=== PATIENT | male | born 1960 | race African-American/Black ===

== ENCOUNTER 2016-07-06 11:17 | Inpatient (IN) | payer OTHER ==
[2016-07-06 12:48] VITALS: BMI 19.8
--- NOTE | 2016-07-06 16:42 | HP ---
CIWA Score - CIWA Score Nausea/Vomitin Muscle Tremors: 3 Anxiety: 3 Agitation: 2 Paroxysmal Sweats: 3 Orientation: 0-Oriented Tacttile Disturbances: 2-Mild Itch/Numbness/Burn Auditory Disturbances: 0-None Visual Disturbances: 0-None Headache: 0-None Present CIWA-Ar Total Score: 16 Admission ROS BHS - HPI Chief Complaint: i need help to stop drinking alcohol. Allergies/Adverse Reactions: Allergies Allergy/AdvReac Type Severity Reaction Status Date / Time No Known Allergies Allergy Verified 07/06/16 15:34 History of Present Illness: 55 y/o m pt on mmtp methadone 40mg with h/o chronic alcoholism seeking detox. Exam Limitations: No Limitations - Ebola screening Have you traveled outside of the country in the last 21 days: No Have you had contact with anyone from an Ebola affected area: No Have you been sick,other than usual withdrawal symptoms: No - Review of Systems Constitutional: Malaise, Night Sweats, Changes in sleep EENT: reports: Blurred Vision (ewars glasses -doesn't have them), Dental Problems (poor repair) Respiratory: reports: Shortness of Breath Cardiac: reports: No Symptoms Reported GI: reports: Constipated, Nausea, Vomiting, Indigestion, Abdominal cramping : reports: No Symptoms Reported Musculoskeletal: reports: Joint Pain (rt ankle , hands , neck) Integumentary: reports: Sweating Neuro: reports: Tremors, Weakness, Other (blackouts -last 1 week ago) Endocrine: reports: No Symptoms Reported Hematology: reports: No Symptoms Reported Psychiatric: reports: Agitated, Anxious, Depressed Other Systems: Reviewed and Negative Patient History - Patient Medical History Hx Anemia: No Hx Asthma: No Hx Chronic Obstructive Pulmonary Disease (COPD): No Hx Cancer: No Hx Cardiac Disorders: No Hx Congestive Heart Failure: No Hx Hypertension: No Hx Hypercholesterolemia: No Hx Pacemaker: No HX Cerebrovascular Accident: No Hx Seizures: No Hx Dementia: No Hx Diabetes: No Hx Gastrointestinal Disorders: No Hx Liver Disease: No Hx Genitourinary Disorders: No Hx Sexually Transmitted Disorders: No Hx Renal Disease (ESRD): No Hx Thyroid Disease: No Hx Human Immunodeficiency Virus (HIV): No Hx Hepatitis C: Yes Hx Depression: Yes (ptsd) Hx Suicide Attempt: No Hx Bipolar Disorder: No Hx Schizophrenia: No Other Medical History: ptsd - Patient Surgical History Past Surgical History: Yes Hx Orthopedic Surgery: Yes (R ankle sx x2) - PPD History Previous Implant?: Yes Documented Results: Negative w/o proof Implanted On Prior R Admission?: No PPD to be Administered?: Yes - Reproductive History Patient is a Female of Child Bearing Age (11 -55 yrs old): No - Smoking Cessation Smoking history: Current every day smoker Have you smoked in the past 12 months: Yes Aproximately how many cigarettes per day: 10 Cigars Per Day: 0 Hx Chewing Tobacco Use: No Initiated information on smoking cessation: Yes 'Breaking Loose' booklet given: 07/06/16 - Substance & Tx. History Hx Alcohol Use: Yes Hx Substance Use: No Substance Use Type: Alcohol Hx Substance Use Treatment: Yes - Substances Abused Alcohol Route: Oral Frequency: Daily Amount used: 3 pints vodka Age of first use: 7 Date of Last Use: 07/06/16 Family Disease History - Family Disease History Family Disease History: CA: Mother Admission Physical Exam BHS - Vital Signs Vital Signs: Vital Signs - 24 hr 07/06/16 12:44 Temperature 97.4 F L Pulse Rate 83 Respiratory 18 Rate Blood Pressure 153/104 55 y/o m pt in nad , ambulating ,with tremors, sweating cooperative with exam. - Physical General Appearance: Yes: Disheveled, Thin, Tremorous, Sweating, Anxious HEENTM: Yes: EOMI, Hearing grossly Normal, Normocephalic, Normal Voice, JUDI, Other (teeth multiple missing , multiple caries -in poor repair) Respiratory: Yes: Chest Non-Tender, Lungs Clear, Normal Breath Sounds, No Respiratory Distress Neck: Yes: Supple Breast: Yes: Within Normal Limits Cardiology: Yes: Regular Rhythm, Regular Rate, S1, S2 Abdominal: Yes: Non Tender, Flat, Soft, Increased Bowel Sounds Genitourinary: Yes: Within Normal Limits Back: Yes: Decreased Range of Motion Musculoskeletal: Yes: Back pain, Joint Stiffness (rt ankle with medial and lateral scars well healed) Extremities: Yes: Tremors Neurological: Yes: supervisory cbp officer II-XII NML intact, Fully Oriented, Motor Strength 5/5, Normal Mood/Affect, Normal Response Integumentary: Yes: Diaphoresis Lymphatic: Yes: Within Normal Limits - Diagnostic (1) Chronic alcoholism Current Visit: Yes Status: Chronic (2) Methadone maintenance therapy patient Current Visit: Yes Status: Chronic (3) PTSD (post-traumatic stress disorder) Current Visit: Yes Status: Chronic (4) Hep C w/o coma, chronic Current Visit: Yes Status: Chronic (5) Depression Current Visit: Yes Status: Chronic Qualifiers: Depression Type: unspecified Qualified Code(s): F32.9 - Major depressive disorder, single episode, unspecified Cleared for Admission [facility] - Detox or Rehab [facility] Level of Care: Medically Managed Detox Regimen/Protocol: Librium S Breath Alcohol Content Breath Alcohol Content: 0 Urine Drug Screen - Results Drug Screen Negative: No Urine Drug Screen Results: MTD-Methadone, TCA-Tricyclic Antidepress
[2016-07-06] MEDS ORDERED: MAGNESIUM CITRATE 300 ML BOTTLE PO PRN (16:56)
[2016-07-06] MEDS ORDERED: MAGNESIUM HYDROX 2400MG/30ML ORAL SUSPENSION 30 ML CUP PO PRN (16:56)
[2016-07-06] MEDS ORDERED: P-EPHED 60MG/TRIPROLIDI 2.5MG TABLET PO PRN (16:56)
[2016-07-06] MEDS ORDERED: LOPERAMIDE HCL 2 MG CAPSULE PO PRN (16:56)
[2016-07-06] MEDS ORDERED: ACETAMINOPHEN 325 MG TABLET (FP) PO PRN (16:56)
[2016-07-06] MEDS ORDERED: MENTHOL/PHENOL 1 EACH UD MM PRN (16:56)
[2016-07-06] MEDS ORDERED: MAG HYDROX/AL HYDROX/SIMETH 30 ML UNIT-DOSE CUP PO PRN (16:56)
[2016-07-06] MEDS ORDERED: IBUPROFEN 400 MG TABLET (FP) PO PRN (16:56)
[2016-07-06] MEDS ORDERED: guaiFENesin/D-METHORPHAN HB 10 ML UNIT-DOSE CUPS PO PRN (16:56)
[2016-07-06] MEDS ORDERED: hydrOXYzine PAMOATE 25 MG CAPSULE (FP) PO PRN (16:56)
[2016-07-06] MEDS ORDERED: NICOTINE POLACRILEX 2 MG GUM BC PRN (16:56)
[2016-07-06] MEDS ORDERED: chlordiazePOXIDE HCL 25 MG CAPSULE PO ONE (18:15)
[2016-07-06] MEDS: chlordiazePOXIDE HCL 25 MG CAPSULE PO SCH ×2 (18:46→22:15)
[2016-07-06] MEDS: diphenhydrAMINE HCL 50 MG CAPSULE PO PRN (22:15)
[2016-07-06] MEDS: THIAMINE HCL 100 MG TABLET (FP) PO SCH (22:15)
[2016-07-07] MEDS: chlordiazePOXIDE HCL 25 MG CAPSULE PO SCH ×4 (05:39→22:16)
[2016-07-07] MEDS: METHADONE HCL 40 MG DISPERSABLE TABLET PO SCH (07:59)
--- NOTE | 2016-07-07 09:24 | EKG ---
Test Reason : Blood Pressure : / mmHG Vent. Rate : 076 BPM Atrial Rate : 076 BPM P-R Int : 154 ms QRS Dur : 094 ms QT Int : 426 ms P-R-T Axes : 072 066 065 degrees QTc Int : 479 ms NORMAL SINUS RHYTHM SEPTAL INFARCT , AGE UNDETERMINED NONSPECIFIC ST ABNORMALITY ABNORMAL ECG NO PREVIOUS ECGS AVAILABLE Confirmed by JONATHAN JONES MD ([id number]) on 07/07/2016 9:24:04 AM Referred By: Confirmed By:JONATHAN JONES MD
--- NOTE | 2016-07-07 09:47 | PN ---
[facility] CIWA - CIWA Score Nausea/Vomitin-No Nausea/No Vomiting Muscle Tremors: 4-Moderate,w/Arms Extend Anxiety: 4-Mod. Anxious/Guarded Agitation: 4-Moderately Restless Paroxysmal Sweats: 1-Minimal Palms Moist Orientation: 0-Oriented Tacttile Disturbances: 3-Moderate Itch/Numb/Burn Auditory Disturbances: 0-None Visual Disturbances: 0-None Headache: 0-None Present CIWA-Ar Total Score: 16 BHS Progress Note (SOAP) Subjective: ANXIETY,TREMORS,SWEATS..PT STATES DECREASED SX W/ MEDS. Objective: 07/07/16 09:46 Vital Signs Temperature 97 F L 07/07/16 09:28 Pulse Rate 80 07/07/16 09:28 Respiratory Rate 18 07/07/16 09:28 Blood Pressure 127/83 07/07/16 09:28 O2 Sat by Pulse Oximetry (%) LAB RESULTS PENDING Assessment: 07/07/16 09:46 WITHDRAWAL SX Plan: CONTINUE DETOX
[2016-07-07 10:15] LABS: MCH 30.7 pg (25.7-33.7); MCHC 32.4 g/dl (32.0-35.9); MEAN CELL VOLUME 94.7 fl (80-96); MEAN PLT VOLUME 10.5 fl (7.5-11.1); PLATELET COUNT 158 K/MM3 (134-434); RDW 19.1 % (11.9-15.9); WHITE BLOOD COUNT 7.4 K/mm3 (4.0-10.0)
[2016-07-07] MEDS: NICOTINE 14 MG/24 HOURS TOPICAL PATCH TD SCH (10:15)
[2016-07-07] MEDS: PRENATAL VITAMINS W/ FOLIC ACID TABLET (FP) PO SCH (10:15)
[2016-07-07 10:20] LABS: URINE APPEARANCE CLEAR; URINE BILIRUBIN NEGATIVE (NEGATIVE); URINE BLOOD NEGATIVE (NEGATIVE); URINE COLOR YELLOW; URINE GLUCOSE (UA) NEGATIVE (NEGATIVE); URINE KETONE NEGATIVE (NEGATIVE); URINE LEUK ESTERASE NEGATIVE (NEGATIVE); URINE NITRITE NEGATIVE (NEGATIVE); URINE PROTEIN NEGATIVE (NEGATIVE); URINE UROBILINOGEN NEGATIVE E.U./dl (0.2-1.0)
[2016-07-07 12:20] LABS: ALBUMIN 3.9 g/dl (3.4-5.0); ALK PHOS 125 U/L (45-117); ANION GAP 11 (8-16); BILIRUBIN,TOTAL 0.4 mg/dL (0.2-1.0); CALCIUM 9.8 mg/dL (8.5-10.1); CO2 31 mmol/L (21-32); COCKROFT - GAULT 91.28; CREATININE 0.8 mg/dL (0.7-1.3); GLUCOSE,RANDOM 92 mg/dL (74-106); SGOT/AST 106 U/L (15-37); SGPT/ALT 64 U/L (12-78); TOT PROT 7.9 g/dl (6.4-8.2)
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
[2016-07-07] MEDS: chlordiazePOXIDE HCL 25 MG CAPSULE PO PRN (14:07)
[2016-07-07] MEDS: QUEtiapine FUMARATE 100 MG TABLET (FP) PO SCH (22:16)
[2016-07-07] MEDS: diphenhydrAMINE HCL 50 MG CAPSULE PO PRN (22:16)
[2016-07-07] MEDS: THIAMINE HCL 100 MG TABLET (FP) PO SCH (22:16)
[2016-07-08] MEDS: METHADONE HCL 40 MG DISPERSABLE TABLET PO SCH (05:46)
[2016-07-08] MEDS: chlordiazePOXIDE HCL 25 MG CAPSULE PO SCH ×2 (05:46→10:12)
[2016-07-08] MEDS: NICOTINE 14 MG/24 HOURS TOPICAL PATCH TD SCH (10:12)
[2016-07-08] MEDS: PRENATAL VITAMINS W/ FOLIC ACID TABLET (FP) PO SCH (10:12)
--- NOTE | 2016-07-08 12:45 | PN ---
S CIWA - CIWA Score Nausea/Vomitin Muscle Tremors: 2 Anxiety: 3 Agitation: 3 Paroxysmal Sweats: 2 Orientation: 0-Oriented Tacttile Disturbances: 1-Very Mild Itch/Numbness Auditory Disturbances: 0-None Visual Disturbances: 0-None Headache: 0-None Present CIWA-Ar Total Score: 13 S Progress Note (SOAP) Subjective: shakes, sweats and anxiety Objective: 07/08/16 12:44 Vital Signs - 8 hr 07/08/16 07/08/16 06:29 10:25 Temperature 97.8 F 96.9 F L Pulse Rate 76 83 Respiratory 16 20 Rate Blood Pressure 118/79 113/71 Laboratory Last Values WBC 7.4 K/mm3 (4.0-10.0) 07/07/16 06:00 RBC 4.77 M/mm3 (4.00-5.60) 07/07/16 06:00 Hgb 14.6 GM/dL (11.7-16.9) 07/07/16 06:00 Hct 45.1 % (35.4-49) 07/07/16 06:00 MCV 94.7 fl (80-96) 07/07/16 06:00 MCHC 32.4 g/dl (32.0-35.9) 07/07/16 06:00 RDW 19.1 % (11.9-15.9) H 07/07/16 06:00 Plt Count 158 K/MM3 (134-434) 07/07/16 06:00 MPV 10.5 fl (7.5-11.1) 07/07/16 06:00 Sodium 143 mmol/L (136-145) 07/07/16 06:00 Potassium 3.8 mmol/L (3.5-5.1) 07/07/16 06:00 Chloride 101 mmol/L (98-107) 07/07/16 06:00 Carbon Dioxide 31 mmol/L (21-32) 07/07/16 06:00 Anion Gap 11 (8-16) 07/07/16 06:00 BUN 9 mg/dL (7-18) 07/07/16 06:00 Creatinine 0.8 mg/dL (0.7-1.3) 07/07/16 06:00 Creat Clearance w eGFR > 60 (>60) 07/07/16 06:00 Random Glucose 92 mg/dL (74-106) 07/07/16 06:00 Calcium 9.8 mg/dL (8.5-10.1) 07/07/16 06:00 Total Bilirubin 0.4 mg/dL (0.2-1.0) 07/07/16 06:00 AST 106 U/L (15-37) H 07/07/16 06:00 ALT 64 U/L (12-78) 07/07/16 06:00 Alkaline Phosphatase 125 U/L (45-117) H 07/07/16 06:00 Total Protein 7.9 g/dl (6.4-8.2) 07/07/16 06:00 Albumin 3.9 g/dl (3.4-5.0) 07/07/16 06:00 Urine Color Yellow 07/06/16 08:00 Urine Appearance Clear 07/06/16 08:00 Urine pH 7.0 (5.0-8.0) 07/06/16 08:00 Ur Specific [place] 1.015 (1.005-1.025) 07/06/16 08:00 Urine Protein Negative (NEGATIVE) 07/06/16 08:00 Urine Glucose (UA) Negative (NEGATIVE) 07/06/16 08:00 Urine Ketones Negative (NEGATIVE) 07/06/16 08:00 Urine Blood Negative (NEGATIVE) 07/06/16 08:00 Urine Nitrite Negative (NEGATIVE) 07/06/16 08:00 Urine Bilirubin Negative (NEGATIVE) 07/06/16 08:00 Urine Urobilinogen Negative E.U./dl (0.2-1.0) 07/06/16 08:00 Ur Leukocyte Esterase Negative (NEGATIVE) 07/06/16 08:00 RPR Titer Nonreactive (NONREACTIVE) 07/07/16 06:00 labs noted Assessment: 07/08/16 12:44 withdrawal sx Plan: continue detox
[2016-07-08] MEDS: chlordiazePOXIDE HCL 25 MG CAPSULE PO PRN (15:22)
[2016-07-08] MEDS: chlordiazePOXIDE 5 MG CAPSULE PO SCH ×2 (17:14→22:28)
[2016-07-08] MEDS: THIAMINE HCL 100 MG TABLET (FP) PO SCH (22:28)
[2016-07-08] MEDS: QUEtiapine FUMARATE 100 MG TABLET (FP) PO SCH (22:28)
[2016-07-08] MEDS: diphenhydrAMINE HCL 50 MG CAPSULE PO PRN (22:30)
[2016-07-09] MEDS: METHADONE HCL 40 MG DISPERSABLE TABLET PO SCH (05:59)
[2016-07-09] MEDS: chlordiazePOXIDE 5 MG CAPSULE PO SCH ×2 (05:59→10:12)
[2016-07-09] MEDS: NICOTINE 14 MG/24 HOURS TOPICAL PATCH TD SCH (10:12)
[2016-07-09] MEDS: PRENATAL VITAMINS W/ FOLIC ACID TABLET (FP) PO SCH (10:12)
--- NOTE | 2016-07-09 15:12 | PN ---
S Progress Note (SOAP) Subjective: Anxious, sweating, nausea, headache Objective: 07/09/16 15:12 Last Vital Signs Temp Pulse Resp BP Pulse Ox 98.3 F 78 20 116/80 07/09/16 13:49 07/09/16 13:49 07/09/16 13:49 07/09/16 13:49 Laboratory Tests 07/06/16 07/07/16 07/07/16 08:00 06:00 06:00 WBC 7.4 RBC 4.77 Hgb 14.6 Hct 45.1 MCV 94.7 MCHC 32.4 RDW 19.1 H Plt Count 158 MPV 10.5 Sodium 143 Potassium 3.8 Chloride 101 Carbon Dioxide 31 Anion Gap 11 BUN 9 Creatinine 0.8 Creat Clearance w eGFR > 60 Random Glucose 92 Calcium 9.8 Total Bilirubin 0.4 AST 106 H ALT 64 Alkaline Phosphatase 125 H Total Protein 7.9 Albumin 3.9 Urine Color Yellow Urine Appearance Clear Urine pH 7.0 Ur Specific [place] 1.015 Urine Protein Negative Urine Glucose (UA) Negative Urine Ketones Negative Urine Blood Negative Urine Nitrite Negative Urine Bilirubin Negative Urine Urobilinogen Negative Ur Leukocyte Esterase Negative RPR Titer 07/07/16 06:00 WBC RBC Hgb Hct MCV MCHC RDW Plt Count MPV Sodium Potassium Chloride Carbon Dioxide Anion Gap BUN Creatinine Creat Clearance w eGFR Random Glucose Calcium Total Bilirubin AST ALT Alkaline Phosphatase Total Protein Albumin Urine Color Urine Appearance Urine pH Ur Specific [place] Urine Protein Urine Glucose (UA) Urine Ketones Urine Blood Urine Nitrite Urine Bilirubin Urine Urobilinogen Ur Leukocyte Esterase RPR Titer Nonreactive Labs noted Assessment: 07/09/16 15:12 Withdrawal symptoms Plan: Continue detox
[2016-07-09] MEDS: chlordiazePOXIDE HCL 25 MG CAPSULE PO PRN (15:22)
[2016-07-09] MEDS: chlordiazePOXIDE HCL 10 MG CAPSULE PO SCH ×2 (17:47→22:21)
[2016-07-09] MEDS: diphenhydrAMINE HCL 50 MG CAPSULE PO PRN (22:21)
[2016-07-09] MEDS: QUEtiapine FUMARATE 100 MG TABLET (FP) PO SCH (22:21)
[2016-07-09] MEDS: THIAMINE HCL 100 MG TABLET (FP) PO SCH (22:21)
[2016-07-10] MEDS: METHADONE HCL 40 MG DISPERSABLE TABLET PO SCH (05:27)
[2016-07-10] MEDS: chlordiazePOXIDE HCL 10 MG CAPSULE PO SCH (05:27)
[2016-07-10 06:32] VITALS: BP 131/83; PULSE 98; TEMP 98.1
--- NOTE | 2016-07-10 12:17 | DS ---
[facility] Detox Discharge Summary Admission Date: 07/06/16 Discharge Date: 07/10/16 - History Present History: Alcohol Dependence, MMTP Pertinent Past History: Hepatitis C - Physical Exam Results Vital Signs: Vital Signs Temperature 98.1 F 07/10/16 06:31 Pulse Rate 98 H 07/10/16 06:31 Respiratory Rate 16 07/10/16 06:31 Blood Pressure 131/83 07/10/16 06:31 O2 Sat by Pulse Oximetry (%) Pertinent Admission Physical Exam Findings: Withdrawal symptoms Laboratory Tests 07/06/16 07/07/16 07/07/16 08:00 06:00 06:00 WBC 7.4 RBC 4.77 Hgb 14.6 Hct 45.1 MCV 94.7 MCHC 32.4 RDW 19.1 H Plt Count 158 MPV 10.5 Sodium 143 Potassium 3.8 Chloride 101 Carbon Dioxide 31 Anion Gap 11 BUN 9 Creatinine 0.8 Creat Clearance w eGFR > 60 Random Glucose 92 Calcium 9.8 Total Bilirubin 0.4 AST 106 H ALT 64 Alkaline Phosphatase 125 H Total Protein 7.9 Albumin 3.9 Urine Color Yellow Urine Appearance Clear Urine pH 7.0 Ur Specific [place] 1.015 Urine Protein Negative Urine Glucose (UA) Negative Urine Ketones Negative Urine Blood Negative Urine Nitrite Negative Urine Bilirubin Negative Urine Urobilinogen Negative Ur Leukocyte Esterase Negative RPR Titer 07/07/16 06:00 WBC RBC Hgb Hct MCV MCHC RDW Plt Count MPV Sodium Potassium Chloride Carbon Dioxide Anion Gap BUN Creatinine Creat Clearance w eGFR Random Glucose Calcium Total Bilirubin AST ALT Alkaline Phosphatase Total Protein Albumin Urine Color Urine Appearance Urine pH Ur Specific [place] Urine Protein Urine Glucose (UA) Urine Ketones Urine Blood Urine Nitrite Urine Bilirubin Urine Urobilinogen Ur Leukocyte Esterase RPR Titer Nonreactive Labs noted - Treatment Hospital Course: Detox Protocol Followed, Detoxed Safely, Responded well, Discharged Condition Good - Medication Discharge Medications: Ambulatory Orders Quetiapine Fumarate [Seroquel -] 100 mg PO HS 07/06/16 Quetiapine Fumarate [Seroquel] 100 mg PO HS #30 tablet 07/07/16 - Diagnosis (1) Nicotine dependence Status: Chronic (2) Hep C w/o coma, chronic Status: Chronic (3) Methadone maintenance therapy patient Status: Chronic (4) PTSD (post-traumatic stress disorder) Status: Chronic (5) Alcohol dependence with withdrawal, uncomplicated Status: Acute - AMA Did Patient Leave Against Medical Advice: No
== END 2016-07-10 09:13 | disposition home or self-care (01) | DRG 773 ==
LOC: YASAS 11:17 → Y3N 17:51
PROVIDERS: ADMIT Internal Medicine; ATTEND Internal Medicine
PROC: HZ2ZZZZ Detoxification Services for Substance Abuse Treatment (ICD-10-PCS; principal; 2016-07-10)
DX: F11.20 Opioid dependence, uncomplicated (principal); F10.20 Alcohol dependence, uncomplicated; F17.213 Nicotine dependence, cigarettes, with withdrawal; F19.24 Other psychoactive substance dependence with psychoactive substance-induced mood disorder; F32.9 Major depressive disorder, single episode, unspecified; F43.10 Post-traumatic stress disorder, unspecified; B19.20 Unspecified viral hepatitis C without hepatic coma; B18.2 Chronic viral hepatitis C
CPT/HCPCS: 36415; 80053; 81003; 85027; 86593; 93005; 93010

== ENCOUNTER 2018-03-26 09:38 | Inpatient (IN) | payer OTHER ==
[2018-03-26 10:29] VITALS: BMI 18.3
--- NOTE | 2018-03-26 12:19 | HP ---
CIWA Score Nausea/Vomitin Muscle Tremors: 2 Anxiety: 2 Agitation: 2 Paroxysmal Sweats: 1-Minimal Palms Moist Orientation: 0-Oriented Tacttile Disturbances: 1-Very Mild Itch/Numbness Auditory Disturbances: 1-Very Mild Visual Disturbances: 0-None Headache: 2-Mild CIWA-Ar Total Score: 14 - Admission Criteria [facility] Guidelines: Admission for Medically Managed Detox: Requires at least one of the followin. CIWA greater than 12 2. Seizures within the past 24 hours 3. Delirium tremens within the past 24 hours 4. Hallucinations within the past 24 hours 5. Acute intervention needed for co occurring medical disorder 6. Acute intervention needed for co occurring psychiatric disorder 7. Severe withdrawal that cannot be handled at a lower level of care (continued vomiting, continued diarrhea, abnormal vital signs) requiring intravenous medication and/or fluids 8. Patient presents the following: CIWA greater than 12 Admission Criteria Met: Admission criteria met Admission ROS S - HPI Chief Complaint: i need help to stop drinking alcohol Allergies/Adverse Reactions: Allergies Allergy/AdvReac Type Severity Reaction Status Date / Time No Known Allergies Allergy Verified 03/26/18 12:06 History of Present Illness: this 57 years old male with alcohol dependence,seeking detox,withdrawal symptom, last treatment in [facility] 07/06/16 to 07/10/16 treatment for pneumonia in 2017 and 02/2018 syncope alcohol related weight loss fx of right ankle s/p surgery in 2013,ambulation with cane since then hepatitis c eczema weight loss anxiety,depression,insomnia multiple admissions in the past but keep relapsing longest period of sobriety 18 months Exam Limitations: No Limitations - Ebola screening Have you traveled outside of the country in the last 21 days: No Have you had contact with anyone from an Ebola affected area: No Have you been sick,other than usual withdrawal symptoms: No Do you have a fever: No - Review of Systems Constitutional: Loss of Appetite, Malaise, Night Sweats, Changes in sleep, Weakness, Unintentional Wgt. Loss EENT: reports: Nose Congestion Respiratory: reports: No Symptoms reported Cardiac: reports: Palpitations GI: reports: Nausea, Poor Appetite, Abdominal cramping : reports: No Symptoms Reported Musculoskeletal: reports: Back Pain, Muscle Pain, Other (history of surgery of right ankle ambulation with cane) Integumentary: reports: Dryness Neuro: reports: Headache, Tremors Endocrine: reports: No Symptoms Reported Hematology: reports: No Symptoms Reported Psychiatric: reports: No Sypmtoms Reported, Judgement Intact, Mood/Affect Appropiate, Orientated x3, Anxious, Depressed (insomnia) Other Systems: Reviewed and Negative Patient History - Patient Medical History Hx Anemia: No Hx Asthma: No Hx Chronic Obstructive Pulmonary Disease (COPD): No Hx Cancer: No Hx Cardiac Disorders: No Hx Congestive Heart Failure: No Hx Hypertension: No Hx Hypercholesterolemia: No Hx Pacemaker: No HX Cerebrovascular Accident: No Hx Seizures: No Hx Dementia: No Hx Diabetes: No Hx Gastrointestinal Disorders: No Hx Liver Disease: No Hx Genitourinary Disorders: No Hx Sexually Transmitted Disorders: No Hx Renal Disease (ESRD): No Hx Thyroid Disease: No Hx Human Immunodeficiency Virus (HIV): No (last 2017) Hx Hepatitis C: Yes (no treatment) Hx Depression: Yes (ptsd) Hx Suicide Attempt: No Hx Bipolar Disorder: No Hx Schizophrenia: No Other Medical History: no suicidal,no homicidal - Patient Surgical History Past Surgical History: Yes Hx Orthopedic Surgery: Yes ( last 2013) - PPD History Previous Implant?: Yes Documented Results: Negative w/o proof Date: 07/08/16 Results: 0 mm PPD to be Administered?: Yes - Smoking Cessation Smoking history: Current every day smoker Have you smoked in the past 12 months: Yes Aproximately how many cigarettes per day: 3 Cigars Per Day: 0 Hx Chewing Tobacco Use: No Initiated information on smoking cessation: Yes 'Breaking Loose' booklet given: 03/26/18 - Substance & Tx. History Hx Alcohol Use: Yes Hx Substance Use: No Substance Use Type: Alcohol Hx Substance Use Treatment: Yes (last [facility]07/[facility]/16 to 07/10/16) - Substances Abused Alcohol Route: Oral Frequency: Daily Amount used: 3 PINTS VODKA Age of first use: 12 Date of Last Use: 03/26/18 Family Disease History - Family Disease History Family Disease History: CA: Mother Admission Physical Exam S - Vital Signs Vital Signs: Vital Signs - 24 hr 03/26/18 10:25 Temperature 97.5 F L Pulse Rate 98 H Respiratory 18 Rate Blood Pressure 108/74 - Physical General Appearance: Yes: Moderate Distress, Tremorous, Irritable, Sweating, Anxious HEENTM: Yes: Normal ENT Inspection, JUDI, Pharynx Normal, Other (poor oral hygiene) Respiratory: Yes: Lungs Clear, Normal Breath Sounds, No Respiratory Distress Neck: Yes: Within Normal Limits, Supple, Trachea in good position Breast: Yes: Within Normal Limits Cardiology: Yes: Regular Rhythm, Regular Rate, S1, S2 Abdominal: Yes: Within Normal Limits, Normal Bowel Sounds, Non Tender, Flat, Soft Genitourinary: Yes: Within Normal Limits Back: Yes: Muscle Spasm Musculoskeletal: Yes: Back pain, Muscle Pain Extremities: Yes: Normal Range of Motion, Tremors, Other (scar in right ankle s/ p surgry of righ tankle fx) Neurological: Yes: state comptroller II-XII NML intact, Fully Oriented, Alert, Motor Strength 5/5 Integumentary: Yes: Dry Lymphatic: Yes: Within Normal Limits - Diagnostic (1) Alcohol dependence with withdrawal, uncomplicated Current Visit: No Status: Acute (2) Hepatitis C Current Visit: Yes Status: Acute (3) Methadone maintenance therapy patient Current Visit: No Status: Chronic (4) Nicotine dependence Current Visit: No Status: Chronic (5) Weight loss Current Visit: Yes Status: Acute (6) Alcohol dependence with uncomplicated intoxication Current Visit: Yes Status: Acute (7) Use of cane as ambulatory aid Current Visit: Yes Status: Acute (8) Insomnia secondary to depression with anxiety Current Visit: Yes Status: Acute Cleared for Admission [facility] - Detox or Rehab [facility] Level of Care: Medically Managed Detox Regimen/Protocol: Librium [facility] Breath Alcohol Content Breath Alcohol Content: 0.238 Urine Drug Screen - Results Drug Screen Negative: No Urine Drug Screen Results: MTD-Methadone Inpatient Rehab Admission - Rehab Decision to Admit Inpatient rehab admission?: No
[2018-03-26] MEDS ORDERED: MAG HYDROX/AL HYDROX/SIMETH 30 ML UNIT-DOSE CUP PO PRN (12:29)
[2018-03-26] MEDS ORDERED: chlordiazePOXIDE HCL 25 MG CAPSULE PO PRN (12:29)
[2018-03-26] MEDS ORDERED: MAGNESIUM CITRATE 300 ML BOTTLE PO PRN (12:29)
[2018-03-26] MEDS ORDERED: IBUPROFEN 400 MG TABLET (FP) PO PRN (12:29)
[2018-03-26] MEDS ORDERED: MENTHOL/PHENOL 1 EACH UD MM PRN (12:29)
[2018-03-26] MEDS ORDERED: ACETAMINOPHEN 325 MG TABLET (FP) PO PRN (12:29)
[2018-03-26] MEDS ORDERED: hydrOXYzine PAMOATE 25 MG CAPSULE (FP) PO PRN (12:29)
[2018-03-26] MEDS ORDERED: LOPERAMIDE HCL 2 MG CAPSULE PO PRN (12:29)
[2018-03-26] MEDS ORDERED: guaiFENesin/D-METHORPHAN HB 10 ML UNIT-DOSE CUPS PO PRN (12:29)
[2018-03-26] MEDS ORDERED: MAGNESIUM HYDROX 2400MG/30ML ORAL SUSPENSION 30 ML CUP PO PRN (12:29)
[2018-03-26] MEDS ORDERED: P-EPHED 60MG/TRIPROLIDI 2.5MG TABLET PO PRN (12:29)
[2018-03-26] MEDS: chlordiazePOXIDE HCL 25 MG CAPSULE PO SCH ×2 (17:49→22:26)
[2018-03-26] MEDS: THIAMINE HCL 100 MG TABLET (FP) PO SCH (22:26)
[2018-03-27] MEDS: chlordiazePOXIDE HCL 25 MG CAPSULE PO SCH ×4 (05:14→22:19)
[2018-03-27] MEDS ORDERED: METHADONE HCL 10 MG TABLET PO SCH (07:30)
[2018-03-27] MEDS ORDERED: METHADONE HCL 10 MG TABLET ONE (07:52)
[2018-03-27] MEDS ORDERED: METHADONE HCL 40 MG DISPERSABLE TABLET ONE (07:52)
[2018-03-27] MEDS: METHADONE 40 MG, METHADONE 10 MG PO SCH (07:53)
[2018-03-27 10:36] LABS: HEMATOCRIT 37.4 % (35.4-49); HEMOGLOBIN 12.5 GM/dL (11.7-16.9); MCH 30.4 pg (25.7-33.7); MCHC 33.5 g/dl (32.0-35.9); MEAN CELL VOLUME 90.9 fl (80-96); MEAN PLT VOLUME 9.7 fl (7.5-11.1); PLATELET COUNT 104 K/MM3 (134-434); RBC 4.12 M/mm3 (4.00-5.60); RDW 16.3 % (11.9-15.9); WHITE BLOOD COUNT 5.4 K/mm3 (4.0-10.0)
[2018-03-27] MEDS: PRENATAL VITAMINS W/ FOLIC ACID TABLET (FP) PO SCH (10:36)
[2018-03-27 10:45] LABS: ALBUMIN 2.8 g/dl (3.4-5.0); ALK PHOS 146 U/L (45-117); ANION GAP 9 MMOL/L (8-16); BILIRUBIN,TOTAL 0.9 mg/dL (0.2-1); BLOOD UREA NITROGEN 8 mg/dL (7-18); CALCIUM 8.5 mg/dL (8.5-10.1); CHLORIDE 94 mmol/L (98-107); CO2 38 mmol/L (21-32); CREATININE 0.8 mg/dL (0.55-1.3); GLUCOSE,RANDOM 144 mg/dL (74-106); SGOT/AST 210 U/L (15-37); SGPT/ALT 69 U/L (13-61); SODIUM 141 mmol/L (136-145); TOT PROT 6.2 g/dl (6.4-8.2)
[2018-03-27 10:48] LABS: POTASSIUM 2.6 mmol/L (3.5-5.1)
[2018-03-27] MEDS ORDERED: POTASSIUM CHLORIDE TABS 20 MEQ TABLET.ER (FP) PO ONE ×2 (11:35→16:30)
--- NOTE | 2018-03-27 11:40 | PN ---
S CIWA - CIWA Score Nausea/Vomitin-Mild Nausea/No Vomiting Muscle Tremors: 4-Moderate,w/Arms Extend Anxiety: 2 Agitation: 3 Paroxysmal Sweats: 1-Minimal Palms Moist Orientation: 0-Oriented Tacttile Disturbances: 0-None Auditory Disturbances: 0-None Visual Disturbances: 0-None Headache: 2-Mild CIWA-Ar Total Score: 13 [facility] Progress Note (SOAP) Subjective: K+ 2.6 cardiac S1S2 potassium 40 meq x 2 doses repeat K+ ast elevation repeat ast tremor sweating trouble sleep at night headaches Objective: 03/27/18 11:42 Vital Signs Temperature 99.1 F 03/27/18 09:52 Pulse Rate 71 03/27/18 11:00 Respiratory Rate 20 03/27/18 11:00 Blood Pressure 109/77 03/27/18 09:52 O2 Sat by Pulse Oximetry (%) Laboratory Last Values WBC 5.4 K/mm3 (4.0-10.0) 03/27/18 07:00 RBC 4.12 M/mm3 (4.00-5.60) 03/27/18 07:00 Hgb 12.5 GM/dL (11.7-16.9) 03/27/18 07:00 Hct 37.4 % (35.4-49) D 03/27/18 07:00 MCV 90.9 fl (80-96) 03/27/18 07:00 MCH 30.4 pg (25.7-33.7) 03/27/18 07:00 MCHC 33.5 g/dl (32.0-35.9) 03/27/18 07:00 RDW 16.3 % (11.9-15.9) H 03/27/18 07:00 Plt Count 104 K/MM3 (134-434) L D 03/27/18 07:00 MPV 9.7 fl (7.5-11.1) 03/27/18 07:00 Sodium 141 mmol/L (136-145) 03/27/18 07:00 Potassium 2.6 mmol/L (3.5-5.1) L* 03/27/18 07:00 Chloride 94 mmol/L (98-107) L 03/27/18 07:00 Carbon Dioxide 38 mmol/L (21-32) H 03/27/18 07:00 Anion Gap 9 MMOL/L (8-16) 03/27/18 07:00 BUN 8 mg/dL (7-18) 03/27/18 07:00 Creatinine 0.8 mg/dL (0.55-1.3) 03/27/18 07:00 Creat Clearance w eGFR > 60 (>60) 03/27/18 07:00 Random Glucose 144 mg/dL (74-106) H 03/27/18 07:00 Calcium 8.5 mg/dL (8.5-10.1) 03/27/18 07:00 Total Bilirubin 0.9 mg/dL (0.2-1) 03/27/18 07:00 AST 210 U/L (15-37) H 03/27/18 07:00 ALT 69 U/L (13-61) H 03/27/18 07:00 Alkaline Phosphatase 146 U/L (45-117) H 03/27/18 07:00 Total Protein 6.2 g/dl (6.4-8.2) L 03/27/18 07:00 Albumin 2.8 g/dl (3.4-5.0) L 03/27/18 07:00 lab noted Assessment: 03/27/18 11:43 alcohol withdrawal sx Plan: continue detox
[2018-03-27] MEDS: THIAMINE HCL 100 MG TABLET (FP) PO SCH (22:19)
[2018-03-27] MEDS: MELATONIN 5 MG TABLETS PO PRN (22:19)
[2018-03-28] MEDS ORDERED: METHADONE HCL 40 MG DISPERSABLE TABLET ONE (04:44)
[2018-03-28] MEDS ORDERED: METHADONE HCL 10 MG TABLET ONE (04:44)
[2018-03-28] MEDS: METHADONE 40 MG, METHADONE 10 MG PO SCH (05:12)
[2018-03-28] MEDS: chlordiazePOXIDE HCL 25 MG CAPSULE PO SCH ×2 (05:12→10:26)
--- NOTE | 2018-03-28 09:58 | PN ---
S CIWA - CIWA Score Nausea/Vomitin-Mild Nausea/No Vomiting Muscle Tremors: 3 Anxiety: 2 Agitation: 2 Paroxysmal Sweats: 1-Minimal Palms Moist Orientation: 1-Uncertain about Date Tacttile Disturbances: 0-None Auditory Disturbances: 0-None Visual Disturbances: 0-None Headache: 2-Mild CIWA-Ar Total Score: 12 S Progress Note (SOAP) Subjective: tremor anxiety restlessness Objective: 03/28/18 09:56 Vital Signs Temperature 98.8 F 03/28/18 09:38 Pulse Rate 66 03/28/18 09:38 Respiratory Rate 20 03/28/18 09:38 Blood Pressure 91/61 03/28/18 09:38 O2 Sat by Pulse Oximetry (%) Laboratory Last Values WBC 5.4 K/mm3 (4.0-10.0) 03/27/18 07:00 RBC 4.12 M/mm3 (4.00-5.60) 03/27/18 07:00 Hgb 12.5 GM/dL (11.7-16.9) 03/27/18 07:00 Hct 37.4 % (35.4-49) D 03/27/18 07:00 MCV 90.9 fl (80-96) 03/27/18 07:00 MCH 30.4 pg (25.7-33.7) 03/27/18 07:00 MCHC 33.5 g/dl (32.0-35.9) 03/27/18 07:00 RDW 16.3 % (11.9-15.9) H 03/27/18 07:00 Plt Count 104 K/MM3 (134-434) L D 03/27/18 07:00 MPV 9.7 fl (7.5-11.1) 03/27/18 07:00 Sodium 141 mmol/L (136-145) 03/27/18 07:00 Potassium 2.6 mmol/L (3.5-5.1) L* 03/27/18 07:00 Chloride 94 mmol/L (98-107) L 03/27/18 07:00 Carbon Dioxide 38 mmol/L (21-32) H 03/27/18 07:00 Anion Gap 9 MMOL/L (8-16) 03/27/18 07:00 BUN 8 mg/dL (7-18) 03/27/18 07:00 Creatinine 0.8 mg/dL (0.55-1.3) 03/27/18 07:00 Creat Clearance w eGFR > 60 (>60) 03/27/18 07:00 Random Glucose 144 mg/dL (74-106) H 03/27/18 07:00 Calcium 8.5 mg/dL (8.5-10.1) 03/27/18 07:00 Total Bilirubin 0.9 mg/dL (0.2-1) 03/27/18 07:00 AST 210 U/L (15-37) H 03/27/18 07:00 ALT 69 U/L (13-61) H 03/27/18 07:00 Alkaline Phosphatase 146 U/L (45-117) H 03/27/18 07:00 Total Protein 6.2 g/dl (6.4-8.2) L 03/27/18 07:00 Albumin 2.8 g/dl (3.4-5.0) L 03/27/18 07:00 RPR Titer Nonreactive (NONREACTIVE) 03/27/18 07:00 lab noted repeat K+ pending repeat ast pending Assessment: 03/28/18 09:58 alcohol withdrawal sx Plan: continue detox
[2018-03-28] MEDS ORDERED: POTASSIUM CHLORIDE TABS 20 MEQ TABLET.ER (FP) PO SCH (10:00)
[2018-03-28] MEDS: PRENATAL VITAMINS W/ FOLIC ACID TABLET (FP) PO SCH (10:24)
[2018-03-28 11:00] LABS: POTASSIUM 3.5 mmol/L (3.5-5.1)
[2018-03-28] MEDS: chlordiazePOXIDE 5 MG CAPSULE PO SCH ×2 (17:44→22:26)
[2018-03-28] MEDS: THIAMINE HCL 100 MG TABLET (FP) PO SCH (22:26)
[2018-03-28] MEDS: MELATONIN 5 MG TABLETS PO PRN (22:28)
[2018-03-29] MEDS ORDERED: METHADONE HCL 40 MG DISPERSABLE TABLET ONE (04:17)
[2018-03-29] MEDS ORDERED: METHADONE HCL 10 MG TABLET ONE (04:17)
[2018-03-29] MEDS: METHADONE 40 MG, METHADONE 10 MG PO SCH (05:39)
[2018-03-29] MEDS: chlordiazePOXIDE 5 MG CAPSULE PO SCH (05:39)
[2018-03-29 06:22] VITALS: BP 123/76; PULSE 70; TEMP 97.5
[2018-03-29] MEDS ORDERED: chlordiazePOXIDE HCL 10 MG CAPSULE PO SCH (17:00)
--- NOTE | 2018-03-29 18:42 | DS ---
[facility] Detox Discharge Summary Admission Date: 03/26/18 Discharge Date: 03/29/18 - History Present History: Alcohol Dependence, Opioid Dependence, MMTP Additional Comments: PATIENT RETURNING TO [facility] ([place], [place]) FOR AFTERCARE. PATIENT ALSO RECOMMENDED TO CONSIDER [facility] ([place], [place]) FOR AFTERCARE. PATIENT WAS DISCHARGED FROM DETOX UNIT IN STABLE MEDICAL CONDITION. Pertinent Past History: History of Depression, Insomnia, Anxiety, P.T.S.D., Hep C, Nicotine Dependence, M.M.T.P., Use of A Cane As An Ambulatory Aid. - Physical Exam Results Vital Signs: Vital Signs Temperature 97.5 F L 03/29/18 06:18 Pulse Rate 70 03/29/18 06:18 Respiratory Rate 18 03/29/18 06:30 Blood Pressure 123/76 03/29/18 06:18 O2 Sat by Pulse Oximetry (%) Pertinent Admission Physical Exam Findings: WITHDRAWAL SYMPTOMS. Laboratory Tests 03/27/18 03/27/18 03/27/18 07:00 07:00 07:00 WBC 5.4 RBC 4.12 Hgb 12.5 Hct 37.4 D MCV 90.9 MCH 30.4 MCHC 33.5 RDW 16.3 H Plt Count 104 L D MPV 9.7 Sodium 141 Potassium 2.6 L* Chloride 94 L Carbon Dioxide 38 H Anion Gap 9 BUN 8 Creatinine 0.8 Creat Clearance w eGFR > 60 Random Glucose 144 H Calcium 8.5 Total Bilirubin 0.9 AST 210 H ALT 69 H Alkaline Phosphatase 146 H Total Protein 6.2 L Albumin 2.8 L RPR Titer Nonreactive 03/28/18 03/29/18 07:00 07:00 WBC RBC Hgb Hct MCV MCH MCHC RDW Plt Count MPV Sodium Potassium 3.5 Chloride Carbon Dioxide Anion Gap BUN Creatinine Creat Clearance w eGFR Random Glucose Calcium Total Bilirubin AST 127 H 105 H ALT Alkaline Phosphatase Total Protein Albumin RPR Titer LABS NOTED. - Treatment Hospital Course: Detox Protocol Followed, Detoxed Safely, Responded well, Discharged Condition Good Patient has Accepted a Rehab Referral to: PATIENT RETURNING TO [facility] ([place], [place]). - Medication Discharge Medications: Ambulatory Orders Quetiapine Fumarate [Seroquel -] 100 mg PO HS 07/06/16 Methadone [Dolophine -] 50 mg PO DAILY 03/26/18 - Diagnosis (1) Alcohol dependence with uncomplicated intoxication Status: Acute (2) Hepatitis C Status: Acute Qualifiers: Viral hepatitis chronicity: chronic Hepatic coma status: without hepatic coma Qualified Code(s): B18.2 - Chronic viral hepatitis C (3) Insomnia secondary to depression with anxiety Status: Acute (4) Use of cane as ambulatory aid Status: Acute (5) Alcohol dependence with withdrawal, uncomplicated Status: Acute (6) Weight loss Status: Acute (7) Methadone maintenance therapy patient Status: Chronic (8) Nicotine dependence Status: Chronic Qualifiers: Nicotine product type: cigarettes Substance use status: uncomplicated Qualified Code(s): F17.210 - Nicotine dependence, cigarettes, uncomplicated - AMA Did Patient Leave Against Medical Advice: No
== END 2018-03-29 09:10 | disposition home or self-care (01) | DRG 773 ==
LOC: YASAS 09:38 → Y3N 12:36
PROVIDERS: ADMIT Surgery; ATTEND Surgery
PROC: HZ2ZZZZ Detoxification Services for Substance Abuse Treatment (ICD-10-PCS; principal; 2018-03-26)
DX: F10.20 Alcohol dependence, uncomplicated (principal); F11.20 Opioid dependence, uncomplicated; F17.210 Nicotine dependence, cigarettes, uncomplicated; F51.05 Insomnia due to other mental disorder; B18.2 Chronic viral hepatitis C; R63.4 Abnormal weight loss; Z68.1 Body mass index [BMI] 19.9 or less, adult; R26.89 Other abnormalities of gait and mobility; Z99.89 Dependence on other enabling machines and devices
CPT/HCPCS: 36415; 80053; 84132; 84450; 85027; 86593